=== PATIENT | female | born 1980 ===

== ENCOUNTER 2019-06-25 07:32 | Inpatient (IN) | payer OTHER ==
[2019-06-25] MEDS ORDERED: Betamethasone INJ* 6 MG/ML 5 ML VIAL (30 MG) IM ONE (08:30)
[2019-06-25] MEDS ORDERED: Lactated Ringers 1000 ML Bag* 1,000 ML IV ONE ×2 (08:30→11:45)
[2019-06-25] MEDS ORDERED: Lactated Ringers 1000 ML Bag* 1,000 ML IV SCH ×2 (09:00→12:00)
[2019-06-25 09:11] LABS: ABS Basophils 0.1 10^3/ul (0-0.2); ABS Eosinophils 0.1 10^3/ul (0-0.6); ABS Lymphocytes 1.8 10^3/ul (1.0-4.8); ABS Neutrophils 8.8 10^3/ul (1.5-7.7); Eosinophil % 0.7 %; Hematocrit 34 % (35-47); Hemoglobin 11.2 g/dL (12.0-16.0); Lymphocyte % 15.4 %; Mean Corpuscular HGB Conc 33 g/dL (31-36); Mean Corpuscular Hemoglobin 25 pg (27-31); Mean Corpuscular Volume 77 fL (80-97); Mean Platelet Volume 8.1 fL (7.4-10.4); Nucleated Red Blood Cells % 0.1; Platelet Count 216 10^3/uL (150-450); Red Blood Count 4.44 10^6 /uL (3.70-4.87); Red Cell Distribution Width 21 % (10-15); White Blood Count 11.8 10^3/uL (3.5-10.8)
[2019-06-25] MEDS ORDERED: Buffered Lidocaine 1% SYRIN* 1 ML/SYRINGE INTRADERM ONE (11:45)
[2019-06-25] MEDS ORDERED: Penicillin G Potassium IV* 5,000,000 UNITS in NS 0.9% 100 ML* 100 ML IVPB ONE (12:00)
[2019-06-25 12:22] LABS: Urine Benzodiazepine Screen None Detected (None Detect); Urine Opiates Screen None Detected (None Detect)
[2019-06-25] MEDS: Penicillin G Potassium IV* 2,500,000 UNITS in NS 0.9% 100 ML* 100 ML IVPB SCH ×2 (16:14→20:19)
--- NOTE | 2019-06-25 19:57 | HP ---
General Information - Reason for Visit ROM - General Information Maternal Age: 38 Grav: 1 Para: 0 SAB: 0 IEA: 0 Estimated Due Date: 07/26/19 Determined By: LMP Gestational Age in Weeks/Days: 35.4 Maternal Blood Type and Rh: A Negative - Results this Serology/RPR Result: Non-Reactive Rubella Result: Immune HBsAg Result: Negative HIV Result: Negative Past Medical History Pertinent Past Medical History: See Records Pertinent Past Surgical History: See Records Pertinent Family History: Non-Contributory - Antepartal Records Antepartal Records: Reviewed, Complicated by: - thyroid disease, large lower uterine segment fibroid likely obstructing the cervical canal. Review of Systems Constitutional: Comfortable CV Complaint: No Respiratory: Shortness of Breath: No Gastrointestinal: No Nausea/Vomiting, Normal Bowel Movement Genitourinary: Leaking Fluid, No Dysuria, No Bleeding Musculoskeletal: No Complaint Neurological: No Headache, No Visual Changes Movement: Normal Exam Allergies/Adverse Reactions: Allergies No Known Allergies Allergy (Verified 06/25/19 09:19) Lab Values - Entire Visit: Laboratory Tests 06/25/19 06/25/19 06/25/19 07:31 09:01 09:01 WBC 11.8 H RBC 4.44 Hgb 11.2 L Hct 34 L MCV 77 L MCH 25 L MCHC 33 RDW 21 H Plt Count 216 MPV 8.1 Neut % (Auto) 74.7 Lymph % (Auto) 15.4 [place] % (Auto) 8.6 Eos % (Auto) 0.7 Baso % (Auto) 0.6 Absolute Neuts (auto) 8.8 H Absolute Lymphs (auto) 1.8 Absolute Monos (auto) 1.0 H Absolute Eos (auto) 0.1 Absolute Basos (auto) 0.1 Absolute Nucleated RBC 0.0 Nucleated RBC % 0.1 Vag Amniotic Fld Detect Positive Urine Opiates Screen Ur Barbiturates Screen Ur Phencyclidine Scrn Ur Amphetamines Screen U Benzodiazepines Scrn Urine Cocaine Screen U Cannabinoids Screen Blood Type A Negative Antibody Screen Positive Antibody Identification Anti-D Direct Antiglob Test Negative 06/25/19 11:45 WBC RBC Hgb Hct MCV MCH MCHC RDW Plt Count MPV Neut % (Auto) Lymph % (Auto) [place] % (Auto) Eos % (Auto) Baso % (Auto) Absolute Neuts (auto) Absolute Lymphs (auto) Absolute Monos (auto) Absolute Eos (auto) Absolute Basos (auto) Absolute Nucleated RBC Nucleated RBC % Vag Amniotic Fld Detect Urine Opiates Screen None detected Ur Barbiturates Screen None detected Ur Phencyclidine Scrn None detected Ur Amphetamines Screen None detected U Benzodiazepines Scrn None detected Urine Cocaine Screen None detected U Cannabinoids Screen None detected Blood Type Antibody Screen Antibody Identification Direct Antiglob Test - Measurements Height: 5 ft 2 in Weight: 220 lb Weight in lbs: [phone] Body Mass Index (BMI): 40.2 Pre- Weight: 190 lb Weight Gained This : 30 lbs and 0 ozs - Exam Breast: Breast Exam Deferred CVA: No CVA Tenderness Extremities: No Edema Heart: Normal Rhythm/Heart Sounds HEENT: No Significant Findings Lungs: Clear Bilaterally - Abdominal Exam Abdomen Exam: Non-Tender - Ultrasound/Biophysical Profile Ultrasound Status: Not Done Targeted Exam Findings Amniotic Fluid Evaluation: Gross Rupture, Positive ROM Plus EFM Findings - External Monitor Findings Baseline Heart Rate: 145 External Monitor Findings: Accelerations Present, No Pattern of Variable or Late Decelerations, Variability Moderate, Baseline Stable Contractions: None Assessment/Plan - Assessment @35.4wks with PPROM, no signs of labor at present. - Obstetrical Risk Factors Obstetrical Risk Factors: GBS Unknown - GBS collected, awaiting results., - Plan Plan: Observe, Antibiotic Prophylaxis, Steroids, C/S Delivery - if signs of infection or labor or 48hr s/p steroids -put on schedule for Tues am
[2019-06-26] MEDS: Penicillin G Potassium IV* 2,500,000 UNITS in NS 0.9% 100 ML* 100 ML IVPB SCH ×6 (00:04→20:28)
[2019-06-26] MEDS ORDERED: Betamethasone INJ* 6 MG/ML 5 ML VIAL (30 MG) IM ONE (08:30)
[2019-06-27] MEDS: Penicillin G Potassium IV* 2,500,000 UNITS in NS 0.9% 100 ML* 100 ML IVPB SCH ×3 (00:48→08:39)
[2019-06-27] MEDS ORDERED: Famotidine IV* 10 MG/ML 2 ML (20 mg) IV ONE (08:00)
[2019-06-27] MEDS ORDERED: ceFOXitin 2 GM IVPREMIX* 2 GM/50 ML BAG IVPB ONE (09:00)
[2019-06-27] MEDS: Scopolamine 1.5 mg* PATCH TRANSDERM SCH (09:20)
[2019-06-27] MEDS ORDERED: Midazolam* 1 MG/ML 5 ML VIAL (5 MG) ONE (10:15)
[2019-06-27] MEDS ORDERED: KETAMINE HCL* 50 MG/ML 10 ML VIAL ONE (10:15)
[2019-06-27] MEDS ORDERED: Morphine PF AMP (0.5MG/ML)* 5 MG/10 ML AMP ONE (10:15)
[2019-06-27] MEDS ORDERED: fentaNYL* 50 MCG/ML 2 ML VIAL (100 MCG VIAL) ONE (10:15)
[2019-06-27] MEDS ORDERED: Carboprost Tromethamine* 250 MCG INJ ONE (10:52)
[2019-06-27] MEDS ORDERED: Naloxone* 2 MG in NS 0.9% 250 ML* 250 ML IV PRN (10:53)
[2019-06-27] MEDS ORDERED: Ondansetron INJ* 2 MG/ML VIAL IV PRN (10:53)
[2019-06-27] MEDS ORDERED: DiMENhydriNATE IV* 50 MG/ML VIAL IV PUSH PRN (10:53)
[2019-06-27] MEDS ORDERED: Nalbuphine* 10 MG/ML 1 ML VIAL IV PRN (10:53)
[2019-06-27] MEDS ORDERED: Naloxone* 0.4 MG/ML 1 ML VIAL IV PRN ×2 (10:53→10:58)
[2019-06-27] MEDS ORDERED: PROCHLORPERAZINE INJ 5 MG/ML 2 ML VIAL IV PRN (10:53)
[2019-06-27] MEDS ORDERED: diPHENhydraMINE IV* 50 MG/ML 1 ml VIAL (BENADRYL) IV PRN (10:53)
[2019-06-27] MEDS ORDERED: oxyCODONE/Acetamin 5/325 MG* TAB PO PRN (10:53)
[2019-06-27] MEDS ORDERED: fentaNYL* 50 MCG/ML 2 ML VIAL (100 MCG VIAL) IV PRN (10:58)
[2019-06-27] MEDS ORDERED: Phenylephrine 10 MG/ML VIAL* 1 ML VIAL ONE (11:08)
[2019-06-27] MEDS ORDERED: OXYTOCIN* 10 UNITS/ML 1 ML VIAL ONE (11:08)
[2019-06-27] MEDS ORDERED: Ketorolac INJ* 30 MG/ML 1 ML VIAL ONE (11:08)
[2019-06-27] MEDS ORDERED: Dexamethasone IV* 4 MG/ML 1 ML (4 MG) ONE (11:08)
[2019-06-27] MEDS ORDERED: PROCHLORPERAZINE INJ 5 MG/ML 2 ML VIAL ONE (11:08)
[2019-06-27] MEDS ORDERED: EPHEDrine (Pressors)* 50 MG/ML VIAL ONE (11:08)
[2019-06-27] MEDS ORDERED: Witch Hazel PAD* JAR TOPICAL PRN (11:49)
[2019-06-27] MEDS ORDERED: Glycerin ADULT SUPP PR PRN (11:49)
[2019-06-27] MEDS ORDERED: Dibucaine 1% 28.35 GM TUBE PR PRN (11:49)
[2019-06-27] MEDS ORDERED: Lactated Ringers 1000 ML Bag* 1,000 ML IV SCH (12:00)
[2019-06-27] MEDS: Acetaminophen TAB* 325 MG PO PRN ×3 (14:22→22:41)
[2019-06-27] MEDS: Docusate CAP* 100 MG PO SCH ×2 (14:25→20:56)
[2019-06-27] MEDS: Simethicone TAB* 80 MG TAB.CHEW PO SCH ×3 (14:25→20:56)
[2019-06-27] MEDS: Ketorolac INJ* 30 MG/ML 1 ML VIAL IV PRN ×2 (17:39→23:44)
--- NOTE | 2019-06-27 20:07 | OP ---
OPERATIVE REPORT: DATE OF OPERATION: 06/27/19 DATE OF : 84. SURGEON: Esther Hairston MD POUND KEEPER: Vincent Hooks DO ANESTHESIA: Spinal. PRE-OP DIAGNOSES: 1. Intrauterine gestation at 35 and 6 weeks gestational age. 2. Premature rupture of membranes. 3. Large, approximately 8 cm lower uterine segment fibroid. POST-OP DIAGNOSES: 1. Intrauterine gestation at 35 and 6 weeks gestational age. 2. Premature rupture of membranes. 3. Large, approximately 8 cm lower uterine segment fibroid. OPERATIVE PROCEDURE: Primary lower transverse section. ESTIMATED BLOOD LOSS: 700 mL. FLUID: Crystalloid. COMPLICATIONS: None. COUNTS: All correct. FINDINGS: Female infant, Apgars of 8 and 8, weight 6 pounds 6 ounces. Normal- appearing placenta. Uterus with 1 large fibroid about 8 cm on the right upper posterior aspect. No other fibroids noted. DESCRIPTION OF PROCEDURE: After informed consent was signed, the patient was taken to the operating room where she was given spinal anesthesia that was found to be adequate. Her abdomen was marked. A [place] catheter was introduced into her bladder and SCDs were placed on her legs. She was then prepped and draped in the dorsal supine position with a leftward tilt. After a time-out was performed, a Pfannenstiel skin incision was made with a scalpel and carried down to the underlying layer of fascia with sharp dissection. The fascia was incised on either side of the midline and the fascial incision extended laterally with a combination of sharp and blunt dissection. The superior edge of the fascial incision was grasped with Ramez clamps, tented up and dissected down with a combination of sharp and blunt dissection. Then the superior edge of the fascial incision was grasped with Ramez clamps and dissected with blunt dissection. The rectus muscles were in the midline and the peritoneum was entered bluntly. The peritoneal incision was extended laterally with blunt pressure. A bladder blade was inserted and a transverse incision was made in the lower uterine segment with a scalpel. The incision was extended superiorly and inferiorly with blunt pressure. The 's head was delivered with fundal pressure followed by the rest of the body. After 30 seconds, the cord was milked towards the baby, then clamped x2 and cut, and the baby was handed to the tax preparer. The placenta was delivered with fundal massage and gentle cord traction and appeared intact. The uterus was then exteriorized and cleared of clots and debris. The uterine incision was closed with 0 Vicryl in a running locked fashion with the second layer of suture imbricating the first. Good hemostasis was noted. The abdomen was irrigated and the uterus was placed back into the abdominal cavity. Good hemostasis was once again noted along the length of the uterine incision. The peritoneum was then closed with 3-0 Vicryl in a running unlocked fashion. The fascia was closed with 0 Vicryl in a running unlocked fashion. One suture of 3-0 Vicryl was placed in the subcuticular layer to reapproximate it and the skin was then closed with 4-0 Monocryl in a running subcuticular fashion. Mastisol and Steri- Strips were placed. The incision was dressed. The patient was then moved to the stretcher and taken to the recovery room in stable condition. [id number]/CPS #: [id number] ORLY
[2019-06-28] MEDS ORDERED: Zolpidem TAB* 5 MG PO PRN (02:30)
[2019-06-28] MEDS: Acetaminophen TAB* 325 MG PO PRN (05:22)
[2019-06-28] MEDS: Ketorolac INJ* 30 MG/ML 1 ML VIAL IV PRN (05:22)
[2019-06-28 06:38] LABS: Hematocrit 30 % (35-47); Hemoglobin 9.6 g/dL (12.0-16.0); Mean Corpuscular HGB Conc 33 g/dL (31-36); Mean Corpuscular Hemoglobin 26 pg (27-31); Mean Corpuscular Volume 79 fL (80-97); Mean Platelet Volume 8.3 fL (7.4-10.4); Platelet Count 215 10^3/uL (150-450); Red Blood Count 3.74 10^6 /uL (3.70-4.87); Red Cell Distribution Width 21 % (10-15); White Blood Count 14.6 10^3/uL (3.5-10.8)
[2019-06-28 07:04] LABS: ABS Lymphocytes 2.4 10^3/ul (1.0-4.8); ABS Monocytes 1.6 10^3/ul (0-0.8); ABS Neutrophils 10.5 10^3/ul (1.5-7.7); Eosinophil % 0.2 %; Lymphocyte % 16.7 %
[2019-06-28] MEDS: Simethicone TAB* 80 MG TAB.CHEW PO SCH ×4 (09:59→21:00)
[2019-06-28] MEDS: Ferrous Gluconate TAB* 324 MG TAB PO SCH ×2 (09:59→20:56)
[2019-06-28] MEDS: Docusate CAP* 100 MG PO SCH ×3 (09:59→20:56)
[2019-06-28] MEDS: Ibuprofen TAB* 600 MG PO PRN ×2 (13:58→20:57)
[2019-06-28] MEDS: oxyCODONE/Acetamin 5/325 MG* TAB PO PRN ×2 (16:20→20:57)
[2019-06-28] MEDS ORDERED: RHO D Immune Globulin (HUMAN)* 300 MCG = 1,500 I.U. INJ IM ONE (16:29)
[2019-06-29] MEDS: oxyCODONE/Acetamin 5/325 MG* TAB PO PRN ×4 (01:19→22:34)
[2019-06-29] MEDS: Ferrous Gluconate TAB* 324 MG TAB PO SCH ×2 (07:37→20:44)
[2019-06-29] MEDS: Simethicone TAB* 80 MG TAB.CHEW PO SCH ×4 (07:38→20:44)
[2019-06-29] MEDS: Docusate CAP* 100 MG PO SCH ×3 (07:38→20:44)
[2019-06-29] MEDS: Ibuprofen TAB* 600 MG PO PRN ×3 (07:38→20:45)
--- NOTE | 2019-06-29 11:08 | PN ---
Progress Note - Progress Note Date of Service: 06/29/19 Note: POD#2 s/p pLTCS in the context of PPROM, fibroid uterus. Doing well post operatively. Pain well controlled. Voiding spontaneously. Tolerating regular diet. O:AVSS, afebrile CV: RRR Pulm: non-labored respirations Abd: soft, nd, nttp, fundus firm below the U Incision: c/d/i Ext: warm, nttp A/P: 38 y/o s/p pLTCS in the context of PPROM, fibroid uterus - AVSS, afebrile, hemodynamically stable H/H 9.630 - RH negative - s/p rhogam - Continue routine post care DO ARA Solorzano
[2019-06-29] MEDS ORDERED: Scopolamine PATCH Remove* 1 NOTE MISC PATCH OFF SCH (13:00)
[2019-06-30] MEDS: Ibuprofen TAB* 600 MG PO PRN ×2 (04:23→10:35)
[2019-06-30] MEDS: oxyCODONE/Acetamin 5/325 MG* TAB PO PRN ×3 (04:23→15:42)
[2019-06-30] MEDS: Docusate CAP* 100 MG PO SCH ×2 (10:35→15:42)
[2019-06-30] MEDS: Simethicone TAB* 80 MG TAB.CHEW PO SCH ×2 (10:36→15:42)
[2019-06-30 10:59] VITALS: BP 115/74
[2019-06-30] MEDS: Scopolamine 1.5 mg* PATCH TRANSDERM SCH (15:49)
== END 2019-06-30 18:40 | disposition home or self-care (01) | DRG 788 ==
LOC: MCHOBOUT 07:32 → MCHOB 08:22
PROVIDERS: ADMIT Obstetrics & Gynecology; ATTEND Obstetrics & Gynecology
PROC: 10D00Z1 Extraction of Products of Conception, Low, Open Approach (ICD-10-PCS; principal; 2019-06-27 10:17)
DX: O42.119 Preterm premature rupture of membranes, onset of labor more than 24 hours following rupture, unspecified trimester (principal); O34.10 Maternal care for benign tumor of corpus uteri, unspecified trimester; D25.9 Leiomyoma of uterus, unspecified; Z3A.35 35 weeks gestation of pregnancy; Z37.0 Single live birth
CPT/HCPCS: 36415; 80307; 84112; 85025; 85461; 86850; 86870; 86880; 86900; 86901; 86922; 87070; 87077; A9270-GY; J0694; J0702; J0780; J1100; J1885; J2250; J2540; J2590; J2790; J3010